=== PATIENT | male | born 1990 | race Two or more races ===

== ENCOUNTER 2016-11-20 06:19 | Emergency (ER) | payer OTHER ==
[~2016-11-20] VITALS: Ht 172.7 cm; Wt 104.3 kg
[2016-11-20] MEDS ORDERED: ONDANSETRON PF 4 MG/2 ML VIAL. IV ONE (06:30)
[2016-11-20] MEDS ORDERED: fentaNYL PF VIAL 100 MCG/2 ML VIAL IV ONE (06:30)
[2016-11-20] MEDS ORDERED: FAMOTIDINE 20 MG/2 ML VIAL IVP ONE (06:30)
[2016-11-20] MEDS ORDERED: IV NORMAL SALINE 1000ML BAG 1,000 ML IV ONE (06:30)
--- NOTE | 2016-11-20 06:38 | PHYS DOC ---
Adult General Chief Complaint Chief Complaint: ABDOMINAL PAIN HPI HPI Patient is a 26 year old male who presents with epigastric pain that radiates through to his back. It started last Friday, proximally 10 days ago and has worsened today. Nausea without vomiting. He does not relate food or drink to his pain. He did drink alcohol on Friday approximately 3 beers. He denies it is a daily drinker. He's had pain in the past similar to this and he had an upper endoscopy performed and was shown to have polyps and ulcers, he currently takes no medications for this. Not actively following with primary care physician. Hasn't attempted any pain medication. Review of Systems Review of Systems Constitutional: Denies fever or chills Eyes: Denies eye pain or discharge HENT: Denies nasal congestion or sore throat Respiratory: Denies cough or shortness of breath [] Cardiovascular: Denies chest pain or edema GI: per hpi : Denies dysuria Musculoskeletal: Denies back pain Extremities: denies joint pain [] Integument: Denies rash Neurologic: Denies headache, denies focal weakness , denies sensory changes [] Current Medications Current Medications Current Medications Medications (Trade) Dose Ordered Sig/Bryanna Start Time Stop Time Status Last Admin Dose Admin Famotidine (Pepcid) 20 mg 1X ONCE 11/20/16 06:30 11/20/16 06:31 DC 11/20/16 07:07 20 MG Fentanyl Citrate (Fentanyl 2ml Vial) 50 mcg 1X ONCE 11/20/16 06:30 11/20/16 06:31 DC 11/20/16 07:10 50 MCG Ondansetron HCl (Zofran) 4 mg 1X ONCE 11/20/16 06:30 11/20/16 06:31 DC 11/20/16 07:06 4 MG Sodium Chloride 1,000 ml @ 1,000 mls/hr 1X ONCE 11/20/16 06:30 11/20/16 07:29 DC 11/20/16 07:05 1,000 MLS/HR Allergies Allergies Allergies Coded Allergies Type Severity Reaction Last Updated Verified No Known Drug Allergies 11/20/16 No Physical Exam Physical Exam Constitutional: Well developed, well nourished HENT: Normocephalic, atraumatic, bilateral external ears normal, oropharynx moist Eyes: PERRLA, EOMI, conjunctiva normal, no discharge. Neck: Normal range of motion, supple, no stridor. Cardiovascular:Heart rate regular with regular rhythm Lungs & Thorax: Bilateral breath sounds clear to auscultation, no wheeze, crackles or rhonchi appreciated Abdomen: Tender to palpation in the epigastric region with right upper quadrant mild tenderness but positive Worley's Skin: Warm, dry Back: No tenderness Extremities: No tenderness, no cyanosis, no edema. [] Neurologic: Alert and oriented X 3, normal motor function, normal sensory function, no focal deficits noted. [] Current Patient Data Vital Signs Vital Signs Date Time Temp Pulse Resp B/P (MAP) Pulse Ox O2 Delivery O2 Flow Rate FiO2 11/20/16 07:10 22 97 Room Air 11/20/16 06:20 98.3 76 144/78 (100) 98.3 Lab Values Laboratory Tests Test 11/20/16 06:40 11/20/16 07:30 White Blood Count 6.6 x10^3/uL (4.0-11.0) Red Blood Count 5.37 x10^6/uL (4.30-5.70) Hemoglobin 15.9 g/dL (13.0-17.5) Hematocrit 46.0 % (39.0-53.0) Mean Corpuscular Volume 86 fL (79-100) Mean Corpuscular Hemoglobin 30 pg (25-35) Mean Corpuscular Hemoglobin Concent 35 g/dL (31-37) Red Cell Distribution Width 12.9 % (11.5-14.5) Platelet Count 171 x10^3/uL (140-400) Neutrophils (%) (Auto) 66 % (31-73) Lymphocytes (%) (Auto) 24 % (24-48) Monocytes (%) (Auto) 8 % (0-9) Eosinophils (%) (Auto) 1 % (0-3) Basophils (%) (Auto) 1 % (0-3) Neutrophils # (Auto) 4.4 x10^3uL (1.8-7.7) Lymphocytes # (Auto) 1.6 x10^3/uL (1.0-4.8) Monocytes # (Auto) 0.5 x10^3/uL (0.0-1.1) Eosinophils # (Auto) 0.1 x10^3/uL (0.0-0.7) Basophils # (Auto) 0.0 x10^3/uL (0.0-0.2) Total Bilirubin 0.3 mg/dL (0.2-1.0) Direct Bilirubin 0.1 mg/dL (0.0-0.2) Aspartate Amino Transferase (AST) 25 U/L (15-37) Alanine Aminotransferase (ALT) 28 U/L (16-63) Alkaline Phosphatase 49 U/L (46-116) Total Protein 7.7 g/dL (6.4-8.2) Albumin 4.1 g/dL (3.4-5.0) Lipase 203 U/L (73-393) POC Hemoglobin 16.3 g/dL (14-18) POC Hematocrit 48 % (37-52) POC Sodium 142 mmol/L (135-145) POC Potassium 3.3 mmol/L (3.5-5.0) L POC Chloride 105 mmol/L (98-110) POC Total CO2 22 mmol/L (23-32) L Anion Gap 19 mmol/L (6-14) H POC Blood Urea Nitrogen 16 mg/dL (8-26) POC Creatinine 0.9 mg/dL (0.5-1.4) Glucose Level 98 mg/dL (70-99) POC Ionized Calcium (Steph) 1.11 mmol/L (1.13-1.32) L Laboratory Tests 11/20/16 06:40 Laboratory Tests 11/20/16 07:30 EKG EKG [] Radiology/Procedures Radiology/Procedures [] Course & Med Decision Making Course & Med Decision Making Pertinent Labs and Imaging studies reviewed. (See chart for details) Patient was given IV fentanyl, IV Pepcid and Zofran. Lab work and urinalysis ordered. Was within normal limits, patient symptoms resolved. Counseled patient on the need to follow-up, recommend starting H2 coco in the interim, avoiding alcohol. Return precautions given. Referred to Dr. De La Rosa and a referral sheet given. Chandler Disclaimer Chandler Disclaimer This electronic medical record was generated, in whole or in part, using a voice recognition dictation system. Departure Departure Impression: Primary Impression: Abdominal pain Disposition: HOME, SELF-CARE Condition: IMPROVED Scripts Famotidine (PEPCID) 20 Mg Tablet 20 MG PO BID for 20 Days, #40 TAB Prov: MAEGAN LOU MD 11/20/16 MAEGAN LOU MD Nov 20, 2016 06:38
[2016-11-20 06:57] LABS: BASO % 1 % (0-3); EOS % 1 % (0-3); HEMOGLOBIN 15.9 g/dL (13.0-17.5); LYMPH # 1.6 x10^3/uL (1.0-4.8); LYMPH % 24 % (24-48); MEAN CORPUSCULAR HEMOGLOBIN 30 pg (25-35); MEAN CORPUSCULAR HGB CONC 35 g/dL (31-37); MEAN CORPUSCULAR VOLUME 86 fL (79-100); MONO % 8 % (0-9); NEUT % 66 % (31-73); PLATELET COUNT 171 x10^3/uL (140-400); RED BLOOD COUNT 5.37 x10^6/uL (4.30-5.70); RED CELL DISTRIBUTION WIDTH 12.9 % (11.5-14.5); WHITE BLOOD COUNT 6.6 x10^3/uL (4.0-11.0)
[2016-11-20 07:08] LABS: ALBUMIN 4.1 g/dL (3.4-5.0); DIRECT BILIRUBIN 0.1 mg/dL (0.0-0.2); TOTAL BILIRUBIN 0.3 mg/dL (0.2-1.0); TOTAL PROTEIN 7.7 g/dL (6.4-8.2)
[2016-11-20 07:37] LABS: POTASSIUM ISTAT 3.3 mmol/L (3.5-5.0)
[2016-11-20] MEDS ORDERED: FAMO-63 PO (07:57)
[2016-11-20 08:10] VITALS: BP 125/68
== END 2016-11-20 08:12 | disposition home or self-care (01) ==
LOC: ER 06:19
DX: R10.13 Epigastric pain (principal); R11.0 Nausea
CPT/HCPCS: 36415; 80047; 80076; 83690; 85025; 96361; 96374; 96375; 99284; J2405; J3010; J7030; S0028

== ENCOUNTER → 2016-12-02 | Outpatient (CLI) | payer OTHER ==
[2016-11-20 08:10] VITALS: BP 125/68
[~2016-12-02] MED LIST: FAMO-63 PO; SINCALIDE 2 MCG in IV NORMAL SALINE 50ML 30 ML IV ONE
--- NOTE | 2016-12-02 09:18 | RAD ---
INDICATION: Abdominal pain. COMPARISON: None. TECHNIQUE: Grayscale and color ultrasound images obtained through the abdomen. FINDINGS: Aorta/IVC: Partially visualized without gross aneurysm. Pancreas: Visualized portions unremarkable. Liver: Echotexture within normal limits. Gallbladder: No definite stones or wall thickening. Common Bile Duct: Not dilated. Right Kidney: No hydronephrosis. IMPRESSION: No bile duct dilation.
--- NOTE | 2016-12-02 11:30 | RAD ---
INDICATION: Abdominal pain. COMPARISON: Ultrasound from earlier same day TECHNIQUE: 5.5 mCi of Tc99m Choletec was injected intravenously and scintigraphic images obtained of the abdomen. 2 mcg of CCK was infused and a gallbladder ejection fraction was calculated. FINDINGS: Prompt radiotracer clearance from the blood pool with hepatic uptake. There is appropriate biliary excretion with the gallbladder visualized prior to the 60 minute time point. Further progression into the small bowel is identified. Gallbladder ejection fraction is 56%. IMPRESSION: 1. No scintigraphic evidence of acute cholecystitis. 2. Gallbladder ejection fraction of 56%. No evidence of biliary dyskinesia.
== END | disposition home or self-care (01) ==
LOC: US 08:52
PROVIDERS: ATTEND Internal Medicine Gastroenterology
DX: R10.13 Epigastric pain (principal)
CPT/HCPCS: 76705; 78226; 96374; 96375; A9537; J2805

== ENCOUNTER → 2017-05-13 | Day surgery (SDC) | payer SELFPAY, OTHER, MEDICAID ==
[~2017-05-13] MED LIST changes: -FAMO-63 PO; +LIDOCAINE 2% 100 MG/5 ML SYRINGE.; +PROPOFOL 40 ML IV; -SINCALIDE 2 MCG in IV NORMAL SALINE 50ML 30 ML IV ONE
[2017-05-13] MEDS: IV RINGERS,LACTATED 1000ML 1,000 ML IV (16:24)
== END | disposition home or self-care (01) ==
LOC: ENDOS 15:59
DX: K29.50 Unspecified chronic gastritis without bleeding (principal); K25.5 Chronic or unspecified gastric ulcer with perforation; Z79.899 Other long term (current) drug therapy
CPT/HCPCS: 43235; J2704

== ENCOUNTER → 2017-06-03 | Outpatient (CLI) | payer MEDICAID, OTHER ==
[2017-06-03] MEDS: SINCALIDE 1.91 MCG in IV NORMAL SALINE 50ML 30 ML IV (10:03)
== END | disposition home or self-care (01) ==
LOC: NM 08:07
DX: R10.13 Epigastric pain (principal); Z79.899 Other long term (current) drug therapy
CPT/HCPCS: 76705; 78226; 96374; 96375; A9537; J2805